=== PATIENT | female | born 1980 | race African-American/Black ===

== ENCOUNTER 2018-02-13 18:06 | Emergency (ER) | payer MEDICAID ==
[2018-02-13 18:46] LABS: #Eosinphils 0.4 thou/uL (0.0-0.7); #Monocytes 0.6 thou/uL (0.11-0.59); #Neutrophils 2.1 thou/uL (1.40-6.50); %Basophils 0.6 % (0.0-1.0); %Eosinophils 7.1 % (0.0-10.0); %Lymphocytes 48.7 % (21.0-51.0); %Monocytes 9.1 % (0.0-10.0); %Neutrophils 34.5 % (42.0-75.0); Hemoglobin 12.8 g/dL (12.0-16.0); Mean Corpuscular HGB CONC 32.4 g/dL (32.0-36.0); Mean Corpuscular Hemoglobin 25.1 pg (27.0-31.0); Mean Corpuscular Volume 77.4 fl (81.0-99.0); Mean Platelet Volume 8.7 fL (7.4-10.4); Platelet Count 230 thou/uL (130-400); RBC Distribution Width 14.6 % (11.5-14.5); Red Blood Cell (RBC) Count 5.12 mill/uL (4.20-5.40); White Blood Cell (WBC) Count 6.1 thou/uL (4.8-10.8)
[2018-02-13 19:10] LABS: ALT (SGPT) 16 U/L (8-55); AST (SGOT) 20 U/L (5-34); Albumin 4.2 g/dL (3.5-5.0); Alkaline Phosphatase 55 U/L (40-150); Anion Gap 13 mmol/L (10-20); BUN (Urea Nitrogen) 25 mg/dL (7.0-18.7); Bilirubin, Total 0.2 mg/dL (0.2-1.2); CK (CPK) 198 U/L (29-168); Calc. Creatinine Clearance 0 mL/min (70-130); Carbon Dioxide 25 mmol/L (22-29); Chloride 104 mmol/L (98-107); Estimated GFR-MDRD 39; Globulin 3.8 g/dL (2.4-3.5); Glucose 102 mg/dL (70-105); Potassium 4.1 mmol/L (3.5-5.1); Sodium 138 mmol/L (136-145)
[2018-02-13 19:15] LABS: CKMB 1.4 ng/mL (0-6.6); Troponin I Less than 0.010 ng/mL (< 0.028)
[2018-02-13] MEDS ORDERED: Nitroglycerin 2% Ointment 1 INCH/1 GM Packet ONE (19:18)
--- NOTE | 2018-02-13 20:22 | RAD ---
PORTABLE UPRIGHT FRONTAL CHEST RADIOGRAPH: 02/13/2018 HISTORY: Chest tightness and shortness of breath. COMPARISON: 01/07/2017 FINDINGS: No pneumothorax, pleural fluid, focal consolidation, or alveolar edema. Heart and mediastinal contou r are unremarkable. IMPRESSION: No acute findings. POS: [facility]
== END 2018-02-13 20:16 | disposition home or self-care (01) ==
LOC: ERS 18:06
DX: R07.89 Other chest pain (principal); E03.9 Hypothyroidism, unspecified; I10 Essential (primary) hypertension; Z79.899 Other long term (current) drug therapy
CPT/HCPCS: 71045; 80053; 82550; 82553; 84484; 85025; 93005; J7620

== ENCOUNTER 2021-06-22 14:37 | Emergency (ER) | payer MEDICAID | END 2021-06-22 15:15 | disposition home or self-care (01) | LOC: ERS 14:37 | DX: J01.90 Acute sinusitis, unspecified (principal); E03.9 Hypothyroidism, unspecified; I10 Essential (primary) hypertension | CPT/HCPCS: 99283 ==

== ENCOUNTER 2022-04-12 23:30 | Inpatient (IN) | payer MEDICAID, SELFPAY ==
[2022-04-12] MEDS ORDERED: Aspirin 325 MG TAB ONE ×2 (23:46→23:50)
[2022-04-12] MEDS ORDERED: Nitroglycerin 2% Ointment 1 INCH/1 GM Packet ONE (23:46)
[2022-04-12] MEDS ORDERED: cloNIDine 0.1 MG TAB ONE (23:46)
[2022-04-13 00:05] LABS: #Eosinphils 0.5 thou/uL (0.0-0.7); #Monocytes 0.5 thou/uL (0.11-0.59); #Neutrophils 2.4 thou/uL (1.40-6.50); %Basophils 0.7 % (0.0-1.0); %Eosinophils 7.2 % (0.0-10.0); %Lymphocytes 46.5 % (21.0-51.0); %Monocytes 8.3 % (0.0-10.0); %Neutrophils 37.4 % (42.0-75.0); Hemoglobin 10.1 g/dL (12.0-16.0); Mean Corpuscular HGB CONC 30.4 g/dL (32.0-36.0); Mean Corpuscular Hemoglobin 21.6 pg (27.0-31.0); Mean Corpuscular Volume 71.1 fL (78.0-98.0); Mean Platelet Volume 11.8 fL (7.4-10.4); Platelet Count 208 thou/uL (130-400); RBC Distribution Width 17.3 % (11.5-14.5); White Blood Cell (WBC) Count 6.4 thou/uL (4.8-10.8)
[2022-04-13 00:17] LABS: ALT (SGPT) 12 U/L (8-55); AST (SGOT) 16 U/L (5-34); Albumin 3.9 g/dL (3.5-5.0); Alkaline Phosphatase 51 U/L (40-110); Anion Gap 16 mmol/L (10-20); BUN (Urea Nitrogen) 24 mg/dL (7.0-18.7); Bilirubin, Total 0.2 mg/dL (0.2-1.2); Calc. Creatinine Clearance 0 mL/min (70-130); Calcium 8.7 mg/dL (7.8-10.44); Carbon Dioxide 22 mmol/L (22-29); Chloride 106 mmol/L (98-107); Globulin 3.6 g/dL (2.4-3.5); Glucose 167 mg/dL (70-105); Potassium 3.9 mmol/L (3.5-5.1); Protein, Total 7.5 g/dL (6.0-8.3); Sodium 140 mmol/L (136-145)
[2022-04-13] MEDS ORDERED: hydrALAZINE 20 MG/ML VIAL ONE (00:28)
[2022-04-13] MEDS ORDERED: Acetaminophen 500 MG TAB ONE (01:16)
[2022-04-13 02:41] LABS: BHCG - Serum Negative (NEGATIVE); Pregs Control Background? CLEAR/WHITE (CLR/WHITE); Pregs Control Bar Appear? YES (CONTROL BAR)
[2022-04-13 04:20] VITALS: BMI 42.9
[2022-04-13] MEDS ORDERED: Nitroglycerin 0.4 MG TAB (25 Tab Bottle) SL PRN (10:32)
[2022-04-13] MEDS ORDERED: Ondansetron ODT 4 MG TAB PO PRN (10:35)
[2022-04-13] MEDS ORDERED: Ondansetron PF 4 MG/2 ML Vial IVP PRN (10:35)
[2022-04-13] MEDS ORDERED: NIFEdipine XL 30 MG TAB PO SCH ×2 (10:45→11:00)
[2022-04-13 12:13] LABS: Magnesium 1.9 mg/dL (1.6-2.6)
[2022-04-13] MEDS ORDERED: Iopamidol-370 76% 500 ML 1 ML ONE (13:03)
[2022-04-13] MEDS: hydrALAZINE 20 MG/ML VIAL SLOW IVP PRN ×2 (14:08→20:48)
[2022-04-13] MEDS ORDERED: cloNIDine 0.1 MG TAB PO SCH ×2 (15:45→18:00)
[2022-04-13] MEDS: Acetaminophen 325 MG TAB PO PRN (15:48)
[2022-04-13] MEDS: Atorvastatin Calcium 40 MG TAB PO SCH (20:42)
[2022-04-14 04:08] LABS: #Basophils 0.1 thou/uL (0.0-0.2); #Eosinphils 0.4 thou/uL (0.0-0.7); #Monocytes 0.3 thou/uL (0.11-0.59); #Neutrophils 2.3 thou/uL (1.40-6.50); %Eosinophils 7.8 % (0.0-10.0); %Lymphocytes 39.2 % (21.0-51.0); %Monocytes 6.7 % (0.0-10.0); %Neutrophils 45.3 % (42.0-75.0); Hemoglobin 10.7 g/dL (12.0-16.0); Mean Corpuscular HGB CONC 30.3 g/dL (32.0-36.0); Mean Corpuscular Hemoglobin 21.6 pg (27.0-31.0); Mean Corpuscular Volume 71.1 fL (78.0-98.0); Mean Platelet Volume 7.2 fL (7.4-10.4); Platelet Count 216 thou/uL (130-400); RBC Distribution Width 17.5 % (11.5-14.5); Red Blood Cell (RBC) Count 4.95 mill/uL (4.20-5.40)
[2022-04-14 04:33] LABS: Anion Gap 14 mmol/L (10-20); BUN (Urea Nitrogen) 16 mg/dL (7.0-18.7); Calc. Creatinine Clearance 66 mL/min (70-130); Calcium 8.7 mg/dL (7.8-10.44); Carbon Dioxide 22 mmol/L (22-29); Cardiac Risk 5.4 (Less than 4.5); Chloride 103 mmol/L (98-107); Cholesterol 280 mg/dl (< 200 Desired); Estimated GFR 35; Glucose 117 mg/dL (70-105); HDL Cholesterol 52 mg/dL (>60 Neg Risk); LDL Cholesterol, Calculated 167 mg/dL; Potassium 4.1 mmol/L (3.5-5.1); Sodium 135 mmol/L (136-145); Triglycerides 304 mg/dL (Less than 150)
[2022-04-14] MEDS: Levothyroxine Sodium 25 MCG TAB PO SCH (08:28)
[2022-04-14] MEDS: cloNIDine 0.1 MG TAB PO SCH (08:29)
[2022-04-14] MEDS: Aspirin Chewable 81 MG TAB PO SCH (08:30)
[2022-04-14] MEDS: NIFEdipine XL 60 MG TAB PO SCH (08:34)
[2022-04-14] MEDS ORDERED: NIFEdipine XL 30 MG TAB PO SCH (09:00)
[2022-04-14] MEDS ORDERED: cloNIDine 0.1 MG TAB PO SCH (09:00)
[2022-04-14 15:23] LABS: Hemoglobin A1c 6.3 % (4.0-6.0)
[2022-04-14] MEDS: Acetaminophen 325 MG TAB PO PRN (16:14)
[2022-04-14] MEDS: Atorvastatin Calcium 40 MG TAB PO SCH (21:37)
[2022-04-15 04:25] LABS: #Eosinphils 0.3 thou/uL (0.0-0.7); #Lymphocytes 2.5 thou/uL (1.20-3.40); #Monocytes 0.6 thou/uL (0.11-0.59); #Neutrophils 2.8 thou/uL (1.40-6.50); %Basophils 0.2 % (0.0-1.0); %Eosinophils 4.2 % (0.0-10.0); %Lymphocytes 40.6 % (21.0-51.0); %Monocytes 9.2 % (0.0-10.0); %Neutrophils 45.9 % (42.0-75.0); Hemoglobin 10.3 g/dL (12.0-16.0); Mean Corpuscular HGB CONC 29.8 g/dL (32.0-36.0); Mean Corpuscular Hemoglobin 21.2 pg (27.0-31.0); Mean Corpuscular Volume 71.3 fL (78.0-98.0); Mean Platelet Volume 11.8 fL (7.4-10.4); Platelet Count 223 thou/uL (130-400); RBC Distribution Width 17.5 % (11.5-14.5); Red Blood Cell (RBC) Count 4.87 mill/uL (4.20-5.40); White Blood Cell (WBC) Count 6.2 thou/uL (4.8-10.8)
[2022-04-15 04:29] LABS: Anion Gap 11 mmol/L (10-20); BUN (Urea Nitrogen) 22 mg/dL (7.0-18.7); Calc. Creatinine Clearance 62 mL/min (70-130); Calcium 8.9 mg/dL (7.8-10.44); Carbon Dioxide 23 mmol/L (22-29); Chloride 106 mmol/L (98-107); Estimated GFR 33; Glucose 105 mg/dL (70-105); Potassium 4.4 mmol/L (3.5-5.1); Sodium 136 mmol/L (136-145)
[2022-04-15] MEDS: Aspirin Chewable 81 MG TAB PO SCH (08:13)
[2022-04-15] MEDS: cloNIDine 0.1 MG TAB PO SCH (08:13)
[2022-04-15] MEDS: Levothyroxine Sodium 25 MCG TAB PO SCH (08:13)
[2022-04-15] MEDS: NIFEdipine XL 60 MG TAB PO SCH (08:13)
[2022-04-15 15:41] VITALS: BP 143/79; TEMP 97.3
== END 2022-04-15 17:56 | disposition home or self-care (01) | DRG 305 ==
LOC: ERS 23:30 → INTOOBSV 04-13 03:03 → 2NO 04-13 03:03 → OBSVTOIN 04-14 16:05
PROVIDERS: ADMIT Internal Medicine; ATTEND Internal Medicine
DX: I16.1 Hypertensive emergency (principal); N17.9 Acute kidney failure, unspecified; Z68.41 Body mass index [BMI] 40.0-44.9, adult; E87.1 Hypo-osmolality and hyponatremia; Z20.822 Contact with and (suspected) exposure to COVID-19; E78.5 Hyperlipidemia, unspecified; R07.89 Other chest pain; I12.9 Hypertensive chronic kidney disease with stage 1 through stage 4 chronic kidney disease, or unspecified chronic kidney disease; N18.30 Chronic kidney disease, stage 3 unspecified; E66.01 Morbid (severe) obesity due to excess calories; E03.9 Hypothyroidism, unspecified; Z79.890 Hormone replacement therapy; Z79.899 Other long term (current) drug therapy; Z90.49 Acquired absence of other specified parts of digestive tract; Z83.3 Family history of diabetes mellitus; Z83.6 Family history of other diseases of the respiratory system
CPT/HCPCS: 36415; 71045; 71275; 74174; 78452; 80048; 80053; 80061; 83036; 83735; 83880; 84443; 84484; 84703; 85025; 93005; 93017; 94760; 96374; 96376; A9500; G0378; J0153; J0360; Q9967; U0003; U0005

== ENCOUNTER 2023-01-12 10:45 | Emergency (ER) | payer BC ==
[2023-01-12] MEDS ORDERED: cloNIDine 0.1 MG TAB ONE (11:11)
== END 2023-01-12 12:12 | disposition home or self-care (01) ==
LOC: ERS 10:45
DX: G62.9 Polyneuropathy, unspecified (principal); I10 Essential (primary) hypertension; E03.9 Hypothyroidism, unspecified; Z79.899 Other long term (current) drug therapy
CPT/HCPCS: 70450

== ENCOUNTER 2023-03-02 12:38 | Outpatient (CLI) | payer BC, MEDICAID | END 2023-03-02 12:39 | disposition home or self-care (01) | LOC: BICMAMMO 12:38 | PROVIDERS: ATTEND Family Medicine | DX: Z12.31 Encounter for screening mammogram for malignant neoplasm of breast (principal) | CPT/HCPCS: 77063; 77067 ==

== ENCOUNTER 2023-09-21 15:23 | Emergency (ER) | payer BC, MEDICAID ==
[2023-09-21] MEDS ORDERED: Ketorolac Tromethamine 30 MG/ML VIAL ONE (15:37)
[2023-09-21] MEDS ORDERED: Methocarbamol 500 MG TAB ONE (15:37)
== END 2023-09-21 17:08 | disposition home or self-care (01) ==
LOC: ERS 15:23
DX: S39.012A Strain of muscle, fascia and tendon of lower back, initial encounter (principal); I10 Essential (primary) hypertension; E78.5 Hyperlipidemia, unspecified; Z79.82 Long term (current) use of aspirin; Z79.899 Other long term (current) drug therapy; X50.9XXA Other and unspecified overexertion or strenuous movements or postures, initial encounter
CPT/HCPCS: 96372; 99283; J1885